=== PATIENT | female | born 1930 | race Caucasian/White ===

== ENCOUNTER → 2017-02-06 | Outpatient (CLI) | payer OTHER | LOC: BRMIMAGING 16:20 | PROVIDERS: ATTEND Internal Medicine | DX: M71.21 Synovial cyst of popliteal space [Baker], right knee (principal) | CPT/HCPCS: 93971-PO ==

== ENCOUNTER → 2018-06-25 | Outpatient (CLI) | payer OTHER | LOC: CIMAGING 11:45 | PROVIDERS: ATTEND Internal Medicine | DX: J40 Bronchitis, not specified as acute or chronic (principal) | CPT/HCPCS: 71046-PO ==

== ENCOUNTER → 2018-07-03 | Outpatient (CLI) | payer OTHER | LOC: CIMAGING 10:59 | PROVIDERS: ATTEND Internal Medicine | DX: R91.1 Solitary pulmonary nodule (principal); R93.89 Abnormal findings on diagnostic imaging of other specified body structures; R91.8 Other nonspecific abnormal finding of lung field; R50.9 Fever, unspecified; R05 Cough; Z87.440 Personal history of urinary (tract) infections | CPT/HCPCS: 71250-PN ==

== ENCOUNTER → 2018-08-05 | Outpatient (CLI) | payer OTHER | LOC: CIMAGING 14:29 ==

== ENCOUNTER 2018-08-22 15:37 | Inpatient (IN) | payer OTHER | END 2018-08-25 14:41 | disposition home or self-care (01) | LOC: F1N 08-23 05:12 ==